=== PATIENT | female | born 1975 ===

== ENCOUNTER 2018-01-02 10:45 | Emergency (ER) | payer MEDICAID ==
[2018-01-02 10:45] VITALS: BMI 29.2
[2018-01-02 10:51] VITALS: O2SAT 100
[2018-01-02] MEDS ORDERED: Sodium Chloride 0.9% 1,000 ML IV ONE (11:16)
--- NOTE | 2018-01-02 11:16 | C.PDOC ---
History Of Present Illness 42 y/o female presents to the ER complaining of epigastric abdominal pain which began in the morning today. Patient states that she has associated nausea. Patient denies having fever, chills, CP,SOB, abdominal pain, vaginal bleeding, and dysuria. Time Seen by Provider: 01/02/18 11:03 Chief Complaint (Nursing): Abdominal Pain History Per: Patient History/Exam Limitations: no limitations Onset/Duration Of Symptoms: Hrs Current Symptoms Are (Timing): Still Present Severity: Moderate Past Medical History Reviewed: Historical Data, Nursing Documentation, Vital Signs Vital Signs: Last Vital Signs Temp 97.8 F 01/02/18 12:39 Pulse 62 01/02/18 12:39 Resp 16 01/02/18 12:39 BP 120/77 01/02/18 12:39 Pulse Ox 100 01/02/18 16:22 - Medical History PMH: Gastritis, HTN Denies: Chronic Kidney Disease Surgical History: Cholecystectomy, Endoscopy - [facility] Procedures ESOPHAGOGASTRODUODENOSCOPY [EGD] W/CLOSED BIOPSY (10/09/14) Family History: States: No Known Family Hx - Social History Hx Alcohol Use: No Hx Substance Use: No - Immunization History Hx Tetanus Toxoid Vaccination: No Hx Influenza Vaccination: No Hx Pneumococcal Vaccination: No Review Of Systems Except As Marked, All Systems Reviewed And Found Negative. Gastrointestinal: Positive for: Nausea, Abdominal Pain Physical Exam - Physical Exam Appears: Non-toxic, No Acute Distress Skin: Normal Color, Warm, Dry Head: Atraumatic, Normacephalic Eye(s): bilateral: Normal Inspection Nose: Normal Oral Mucosa: Moist Neck: Supple Chest: Symmetrical Cardiovascular: Rhythm Regular, No Murmur Respiratory: Normal Breath Sounds, No Rales, No Rhonchi, No Wheezing Gastrointestinal/Abdominal: Bowel Sounds ((+) bowel sounds), Soft, Tenderness ( epigastric tenderness), No Guarding, No Rebound Neurological/Psych: Oriented x3, Normal Speech ED Course And Treatment - Laboratory Results Result Diagrams: 01/02/18 11:29 01/02/18 11:29 O2 Sat by Pulse Oximetry: 100 (RA) Pulse Ox Interpretation: Normal Medical Decision Making Medical Decision Making: Assessment: Abdominal Pain Plan: --Labs --UA --Protonix IV --Zofran IV --IV Fluids Updates: On re-evaluation, patient feels better and does not exhibit any symptoms. Patient has been advised to follow up with PMD in 2 days and return to the ER if symptoms worsen. Patient understands plan and has been discharged home. Disposition Counseled Patient/Family Regarding: Studies Performed, Diagnosis, Need For Followup, Rx Given - Disposition Referrals: Shaik Madrigal MD [Staff Provider] - Disposition: HOME/ ROUTINE Disposition Time: 13:08 Condition: STABLE Additional Instructions: follow up with your doctor in 2 days call to make an appointment take medications as needed return to ER if symptoms worsens or progress Prescriptions: Esomeprazole Magnesium [Nexium] 40 mg PO DAILY #30 ecc Ondansetron ODT [Zofran ODT] 4 mg PO TID PRN #12 odt PRN Reason: Nausea/Vomiting Instructions: Gastritis, Acute Abdomen (Belly Pain), Adult (DC) Forms: General Discharge Instructions, [facility] (Dutch), Work Excuse - Clinical Impression Clinical Impression: Abdominal pain, Gastritis - Scribe Statement The provider has reviewed the documentation as recorded by the Iman Gaona Provider Attestation: All medical record entries made by the Jesseibbere were at my direction and personally dictated by me. I have reviewed the chart and agree that the record accurately reflects my personal performance of the history, physical exam, medical decision making, and the department course for this patient. I have also personally directed, reviewed, and agree with the discharge instructions and disposition.
[2018-01-02 11:21] LABS: HCG,QUALITATIVE URINE NEGATIVE (NEGATIVE)
[2018-01-02 11:25] LABS: SQUAMOUS EPITHIAL 5 /hpf (0-5); URINE BILIRUBIN NEGATIVE (NEGATIVE); URINE BLOOD 2+ (NEGATIVE); URINE CLARITY Hazy (Clear); URINE COLOR Yellow (YELLOW); URINE GLUCOSE (UA) NORMAL (Normal); URINE LEUKOCYTE ESTERASE NEG Leu/uL (Negative); URINE PROTEIN NEGATIVE (NEGATIVE); URINE UROBILINOGEN NORMAL mg/dL (0.2-1.0)
[2018-01-02 11:32] LABS: BASO % 0.8 % (0.0-2.0); EOS # 0.1 K/uL (0.0-0.7); EOS % 1.3 % (0.0-4.0); LYMPH # 1.5 K/uL (1.0-4.3); LYMPH % 35.5 % (20.0-40.0); MEAN CELL VOLUME 81.1 fL (81.0-99.0); MEAN CORPUSCULAR HEMOGLOBIN 27.4 pg (27.0-31.0); MEAN CORPUSCULAR HGB CONC 33.8 g/dL (33.0-37.0); MEAN PLATELET VOLUME 9.5 fL (7.2-11.7); MONO # 0.3 K/uL (0.0-0.8); MONO % 7.2 % (0.0-10.0); NEUT # 2.4 K/uL (1.8-7.0); NEUT % 55.2 % (50.0-75.0); RBC 4.03 Mil/uL (3.80-5.20); RED CELL DISTRIBUTION WIDTH 14.5 % (11.5-14.5); WHITE BLOOD COUNT 4.3 K/uL (4.8-10.8)
[2018-01-02] MEDS ORDERED: Sodium Chloride 0.9% 1,000 ML ONE (11:33)
[2018-01-02 11:48] LABS: ALBUMIN 4.3 g/dL (3.5-5.0); ALT/SGPT 9 U/L (9-52); AST/SGOT 19 U/L (14-36); BLOOD UREA NITROGEN 12 mg/dL (7-17); CALCIUM 9.2 mg/dl (8.6-10.4); GFR AFRICAN-AMERICAN > 60; GFR NON-AFRICAN AMERICAN > 60; LIPASE 41 U/L (23-300)
[2018-01-02 12:41] VITALS: BP 120/77; PULSE 62; RESP 16; TEMP 97.8
== END 2018-01-02 13:36 | disposition home or self-care (01) ==
LOC: C.ER 10:45
DX: K29.70 Gastritis, unspecified, without bleeding (principal); R10.13 Epigastric pain
CPT/HCPCS: 80053; 81001; 83690; 84703; 85025; 96361; 96374; 96375; 99284; C9113; J2405; J7040

== ENCOUNTER 2019-01-11 14:15 | Outpatient (CLI) | payer OTHER | END 2019-01-11 14:16 | disposition home or self-care (01) | LOC: C.MAMMO 14:15 | DX: Z12.31 Encounter for screening mammogram for malignant neoplasm of breast (principal) ==

== ENCOUNTER 2019-01-24 14:37 | Outpatient (CLI) | payer OTHER | END 2019-01-24 14:38 | disposition home or self-care (01) | LOC: C.USIC 14:37 | DX: R10.2 Pelvic and perineal pain (principal) ==